=== PATIENT | male | born 1945 | race Caucasian/White ===

== ENCOUNTER → 2021-09-28 | Outpatient (CLI) | payer OTHER ==
[2021-09-28 14:37] LABS: Stool Occult Bld Immuno 1 Negative (NEGATIVE)
== END | disposition home or self-care (01) ==
LOC: LAB SHORT 07:30
PROVIDERS: Internal Medicine Hematology & Oncology
DX: D45 Polycythemia vera (principal)
CPT/HCPCS: G0328

== ENCOUNTER 2023-11-22 11:21 | Inpatient (IN) | payer OTHER ==
[~2023-11-22] VITALS: Ht 180.3 cm; Wt 82.5 kg
[2023-11-22] VITALS (36 sets, daily range): BP systolic 91–147; BP diastolic 51–115
[2023-11-22] MEDS ORDERED: propofoL 100 ML IV ONE (11:37)
[2023-11-22] MEDS ORDERED: FentaNYL Citrate 50 MCG/ML 2 ML Injection IV SCH (11:45)
[2023-11-22] MEDS ORDERED: propofoL 100 ML IV SCH ×2 (11:45→17:05)
[2023-11-22 11:52] LABS: BASOPHILS PERCENT AUTO 1 % (0-2); EOSINOPHILS ABSOLUTE AUTO 0.31 K/mm3 (0.00-0.68); EOSINOPHILS PERCENT AUTO 1 % (0-6); Hematocrit 53.7 % (37.0-53.0); Hemoglobin 15.7 g/dL (13.5-17.5); IMMATURE GRAN ABSOLUTE AUTO 0.28 K/mm3 (0.00-0.10); IMMATURE GRAN PERCENT AUTO 1 % (0-1); LYMPHOCYTES ABSOLUTE AUTO 4.97 K/mm3 (0.84-5.20); LYMPHOCYTES PERCENT AUTO 23 % (21-46); MONOCYTES ABSOLUTE AUTO 0.83 K/mm3 (0.16-1.47); MONOCYTES PERCENT AUTO 4 % (4-13); Mean Corpuscular HGB 19.4 pg (26.0-34.0); Mean Corpuscular HGB Conc 29.2 g/dL (31.5-36.5); Mean Corpuscular Volume 66 fL (80-100); Mean Platelet Volume 9.2 fL (9.1-12.4); NEUTROPHILS ABSOLUTE AUTO 15.54 K/mm3 (1.96-9.15); NEUTROPHILS PERCENT AUTO 70 % (41-73); Platelet Count 713 K/mm3 (150-400); RDW Coefficient Variation 21.9 % (11.7-14.2); RDW Standard Deviation 46.2 fL (35.1-46.3); White Blood Cell Count 22.13 K/mm3 (4.00-11.30)
[2023-11-22 12:05] LABS: Bicarbonate Venous 17.1 mmol/L (24.0-30.0); PCO2 Venous 30.9 mmHg (38-42); pH Blood Venous 7.31 (7.34-7.37)
[2023-11-22 12:07] LABS: International Normalized Ratio 1.15; Prothrombin Time Results 12.2 Sec (9.7-11.5)
[2023-11-22 12:45] LABS: Alanine Aminotransfer (ALT/SGP 37 U/L (12-78); Albumin, Blood 3.5 g/dL (3.4-5.0); Alk Phos 83 U/L (50-136); Anion Gap 20 mmol/L (3-11); Aspartate Aminotrans (AST/SGOT 49 U/L (12-37); Bilirubin, Total 1.6 mg/dL (0.1-1.0); Blood Urea Nitrogen 17 mg/dL (8-24); Bun/Creatinine Ratio 14.2 (12.0-20.0); CO2, Blood 14 mmol/L (21-32); Calcium, Blood 8.8 mg/dL (8.5-10.1); Chloride, Blood 109 mmol/L (98-108); Ethanol (Alcohol), Blood, Med <3 mg/dL; Free Thyroxine 1.01 ng/dL (0.70-1.60); Globulin, Blood 3.4 g/dL (2.2-4.0); Glomerular Filtration Rate 61 (60-); Glucose, Blood 178 mg/dL (70-99); Potassium, Blood 4.2 mmol/L (3.5-5.5); Sodium, Blood 139 mmol/L (136-145); Total Protein, Blood 6.9 g/dL (6.4-8.2)
[2023-11-22] MEDS ORDERED: NS 1,000 ML IV ONE (13:08)
[2023-11-22] MEDS ORDERED: Mag Sulfate 1 GM/D5% 100ML 100 ML IV ONE (13:10)
[2023-11-22 13:12] LABS: Source, Urine Clean Catch
[2023-11-22] MEDS ORDERED: fentaNYL citrate 1,000 MCG in NS 80 ML IV SCH (13:15)
[2023-11-22 13:16] LABS: Appearance, Urine Hazy (Clear); Bilirubin, Urine Neg (Neg); Blood, Urine 5+ (Neg); Color, Urine Yellow (P-Yellow); Glucose Qualitative, Urine Neg (Neg); Ketones, Urine Neg (Neg); Leukocyte Esterase, Urine Neg (Neg); Nitrite, Urine Neg (Neg); Protein, Urine 2+ (Neg); Urobilinogen, Urine NORM (Normal)
[2023-11-22 13:27] LABS: Bacteria Rare /hpf; Mucus Light (0-Heavy); Red Blood Cells, Urine 50-100 /hpf (0-2); Squamous Epithelial Cells Rare /hpf (Few); White Blood Cells, Urine 0-2 /hpf (0-5)
[2023-11-22 13:34] LABS: U Amphetamine Screen Not Detected; U Barbituate Screen Not Detected; U Benzodiazapine Screen Not Detected; U Buprenorphine Screen Not Detected; U Cannabinoids Screen Not Detected; U Cocaine Screen Not Detected; U Methadone Screen Not Detected; U Methamphetamine Screen Not Detected; U Opiates Screen Not Detected; U Oxycodone Screen Not Detected; U Phencyclidine Screen Not Detected
[2023-11-22] MEDS ORDERED: Cefepime HCl 2,000 MG in NS 100 ML IV ONE (13:55)
[2023-11-22] MEDS ORDERED: Lactated Ringer's 1,000 ML IV SCH (14:20)
--- NOTE | 2023-11-22 14:53 | NUR ---
ARRIVAL TO ICU PT BROUGHT TO ICU 4 AT THIS TIME. PT RECEIVING PROPOFOL 35MCG/KG/MIN, FENTANYL 25MCG/HR AND AMIODARONE 1MG/MIN. RASS -3. COUGH/GAG INTACT. HE IS ON THE VENT WITH SETTINGS AC/VC 12/450/7/40%. ETT PLACEMENT VERIFIED WITH TRESA OBANDO. OGT TO LIS WITH RED APPEARING OUTPUT. SINUS NNEKA ON MONITOR WITH RATE IN 40S-50S. MAP >65. AMIODARONE D/C PER DR HENDERSON. [place] PATENT AND DRAINING TO GRAVITY. URINE IS RED WITH CLOTS IN COLLECTION BAG BUT APPEARS YURY NOW IN TUBING. RECTAL TEMP PROBE PLACED, CORE TEMP 99.1. PT'S SON ED ARRIVED AT BEDSIDE AND PROVIDED UPDATE FROM NURSING STAFF AND DR HENDERSON. ED TOOK PT'S CAR KEYS. NO WALLET OR PHONE IN BELONGINGS. DR BLAIR AT BEDSIDE. PLAN FOR ECHO TOMORROW.
[2023-11-22] MEDS ORDERED: Ampicillin Sod/Sulbactam Sod 3 GM in NS 100 ML IV SCH (16:00)
[2023-11-22] MEDS ORDERED: Doxycycline Hyclate 100 MG in Dextrose 5% 250 ML IV SCH (16:00)
[2023-11-22 17:20] LABS: Base Excess Venous -6.4 mmol/L; Bicarbonate Venous 19.5 mmol/L (24.0-30.0); PCO2 Venous 37.5 mmHg (38-42); pH Blood Venous 7.33 (7.34-7.37)
[2023-11-22] MEDS ORDERED: Acetaminophen 160MG / 5ML 10.15 UDC PT PRN (17:45)
--- NOTE | 2023-11-22 17:47 | NUR ---
SHIFT SUMMARY PT RECEIVING PROPOFOL 35MCG/KG/MIN AND FENTANYL 25MCG/HR. WITH MEDICATIONS TITRATED DOWN, PT GRIMACING AND PULLING AGAINST RESTRAINTS. CURRENT RASS -3. HE REMAINS INTUBATED WITH VENT SETTINGS AC/VC+ 12/450/5/30%. OGT TO LIS WITH RED FLUID OUTPUT. ABDOMEN SOFT, NONTENDER. AUSTIN PATENT AND DRAINING TO YURY URINE TO GRAVITY. TMAX 99.8. ICE PACKS IN PLACE.
[2023-11-22 17:53] LABS: Albumin, Blood 3.7 g/dL (3.4-5.0); Albumin/Globulin Ratio 1.1 (0.8-1.8); Bilirubin, Total 1.9 mg/dL (0.1-1.0); Bun/Creatinine Ratio 14.9 (12.0-20.0); Calcium, Blood 9.1 mg/dL (8.5-10.1); Creatinine, Blood 1.21 mg/dL (0.60-1.20); Globulin, Blood 3.5 g/dL (2.2-4.0); Phosphorus, Blood 3.3 mg/dL (2.5-4.9); Potassium, Blood 4.5 mmol/L (3.5-5.5); Total Protein, Blood 7.2 g/dL (6.4-8.2)
[2023-11-22] MEDS ORDERED: NS 250 ML IV PRN (20:55)
[2023-11-22] MEDS ORDERED: Cetylpyridinium Chloride 1 EA MISC MT SCH (20:55)
[2023-11-22] MEDS ORDERED: Etomidate 2MG / ML 10ML Vial XX ONE (21:57)
[2023-11-22] MEDS ORDERED: Rocuronium Bromide 10 MG/ML 5ML Injection IV ONE (21:57)
--- NOTE | 2023-11-22 22:37 | NUR ---
ASSUMED CARE CARE WAS ASSUMED OF PT AT APPROX. 1900. PT INTUBATED AND SEDATED. PROPOFOL AND FENTANYL GTT INFUSING, SEE FLOWSHEET. RASS -3, CPOT 0-2. PT GRIMACES WITH PHYSICAL STIMULI. PT NOT FOLLOWING COMMANDS AT THIS TIME. PT IN BILATERAL SOFT WRIST RESTRAINTS FOR SAFETY. PT WILL OCCASIONALLY REACH UP WITH BUE WITH PHYSICAL STIMULI. VENT SETTINGS AC/VC+ 12/450/5/30%. PT HAVING MODERATE AMOUNT OF THICK/MAYER SECRETIONS. O2 SATS > 90%. CARDIAC MONITORING REFLECTS SINUS NNEKA, HR 40s-50s. SBP 100s-110s. PIV x4. LR INFUSING @ 75 mL/HR. CORE TEMPERATURE MONITORING IN PLACE, ICE PACKS AND FAN IN PLACE FOR PT'S ELEVATED TEMPERATURE. [place] PATENT AND DRAINING TO GRAVITY. OG TO LIS, CLEAR/RED DRAINAGE NOTED.
[2023-11-23] VITALS (50 sets, daily range): BP systolic 93–146; BP diastolic 44–103
[2023-11-23] MEDS ORDERED: Hydrogen Peroxide 1.5 % Solution MT SCH
[2023-11-23 02:06] LABS: Source, Urine Foley catheter
[2023-11-23 02:12] LABS: Appearance, Urine Clear (Clear); Bilirubin, Urine Neg (Neg); Blood, Urine 2+ (Neg); Color, Urine Yellow (P-Yellow); Glucose Qualitative, Urine Neg (Neg); Ketones, Urine Neg (Neg); Leukocyte Esterase, Urine 2+ (Neg); Nitrite, Urine Neg (Neg); Protein, Urine 2+ (Neg); Specific Gravity, Urine 1.025 (1.003-1.022); Urobilinogen, Urine NORM (Normal)
[2023-11-23 02:25] LABS: Amorphous Light (0-Heavy); Bacteria Mod /hpf; Squamous Epithelial Cells Few /hpf (Few)
[2023-11-23 03:27] LABS: Base Excess Venous -3.6 mmol/L; Bicarbonate Venous 22.2 mmol/L (24.0-30.0); PCO2 Venous 32.7 mmHg (38-42)
[2023-11-23 03:28] LABS: pH Blood Venous 7.42 (7.34-7.37)
[2023-11-23 03:30] LABS: Hematocrit 49.6 % (37.0-53.0); Hemoglobin 14.7 g/dL (13.5-17.5); Mean Corpuscular HGB 19.5 pg (26.0-34.0); Mean Corpuscular HGB Conc 29.6 g/dL (31.5-36.5); Mean Corpuscular Volume 66 fL (80-100); Mean Platelet Volume 9.2 fL (9.1-12.4); Platelet Count 511 K/mm3 (150-400); RDW Coefficient Variation 21.6 % (11.7-14.2); RDW Standard Deviation 45.3 fL (35.1-46.3); Red Blood Cell Count 7.52 M/mm3 (4.30-5.90); White Blood Cell Count 23.04 K/mm3 (4.00-11.30)
[2023-11-23 03:57] LABS: Albumin, Blood 3.3 g/dL (3.4-5.0); Anion Gap 14 mmol/L (3-11); Blood Urea Nitrogen 19 mg/dL (8-24); Bun/Creatinine Ratio 18.3 (12.0-20.0); CO2, Blood 20 mmol/L (21-32); Calcium, Blood 8.7 mg/dL (8.5-10.1); Chloride, Blood 109 mmol/L (98-108); Creatinine, Blood 1.04 mg/dL (0.60-1.20); Glomerular Filtration Rate 73 (60-); Glucose, Blood 144 mg/dL (70-99); Magnesium, Blood 2.2 mg/dL (1.6-2.4); Potassium, Blood 4.8 mmol/L (3.5-5.5); Sodium, Blood 138 mmol/L (136-145)
--- NOTE | 2023-11-23 05:17 | NUR ---
SHIFT SUMMARY NO ACUTE CHANGES THIS SHIFT. PT REMAINS INTUBATED AND SEDATED. PROPOFOL AND FENTANYL GTT INFUSING, SEE FLOWSHEET. RASS -3, PT WILL OCCASIONALLY OPEN EYES BUT NOT MAKE EYE CONTACT. PT NOT FOLLOWING COMMANDS AT THIS TIME. CPOT O. PT REMAINS IN BILATERAL SOFT WRIST RESTRAINTS, PT WILL PULL AGAINST RESTRAINTS WHEN AWAKE. VENT SETTINGS UNCHANGED THIS SHIFT, AC/VC+ 12/450/5/30%, O2 SATS > 90%. CARDIAC MONITORING REFLECTS SINUS NNEKA WITH OCCASIONAL PVCs, HR 40s-50s. PT HAD 1 16-BEAT RUN OF VTACH THIS SHIFT. EKG PERFORMED THIS SHIFT. SBP 90s-110s. OG TO LIS. [place] PATENT AND DRAINING TO GRAVITY. TMAX THIS SHIFT 100.6 DEGREES F, CORE TEMP IMPROVED THIS SHIFT. AT THIS TIME 99.5 DEGREES F, ICE PACKS REMOVED. PIV x4. LR REMAINS INFUSING @ 75 mL/HR.
[2023-11-23] MEDS ORDERED: LORazepam 2 MG/ML 1ML Injection ONE (09:50)
[2023-11-23] MEDS ORDERED: LORazepam 2 MG/ML 1ML Injection IV ONE (10:05)
--- NOTE | 2023-11-23 10:24 | NUR ---
ASSUMED CARE NOTE PT IN BED, INTUBATED AND SEDATED. VENT SETTINGS AC/VC 12/450/5/30%. CALM, RESPONSIVE TO VERBAL STIMULI, EYES CLOSED. PROPOFOL RUNNING AT 25MCG/KG/HR, FENTANYL RUNNING AT 25MCG/KG/HR. SCDS IN PLACE. BUE SOFT WRIST RESTRAINTS IN PLACE, GOOD DISTAL CIRCULATION.
--- NOTE | 2023-11-23 10:32 | NUR ---
EXTUBATION NOTE PT EXTUBATED SUCCESSFULLY AT 0930 WITH RT TRESA. PT HANDLED EXTUBATION WELL, WAS ABLE TO COUGH AND CLEAR AIRWAY INDEPENDENTLY. WAS ABLE TO SIT UP AND SPEAK. SPO2 >90% ON ROOM AIR. ETCO2 BETWEEN 8-15. GOT PT TO DANGLE ON SIDE OF BED. PT BEGAN TO TRY TO GET OOB. PULLED ON LINES AND ATTEMPTED TO TAKE GOWN OFF. PT WAS NOT REDIRECTABLE, ATTEMPTED TO ORIENT PT MULTIPLE TIMES BUT UNSUCCESSFUL. FOR SAFETY- NATALI VEST WAS PLACED. PT IS MAINTAINING AIRWAY AND RESTING IN BED WITH EYES CLOSED, CHEST RISE AND FALL NOTED, BREATHS EVEN AND UNLABORED.
[2023-11-23] MEDS ORDERED: ELIQUIS5 M2 PO (13:27)
[2023-11-23] MEDS ORDERED: METO25ER PO (13:29)
--- NOTE | 2023-11-23 13:30 | NUR ---
SWALLOW EVAL/UPDATE: PT SITTING UP BED, AWAKE AND ORIENTED TO SELF. ANSWERING YES/NO QUESTIONS. HAD PT ATTEMPT TO EAT ICE CHIPS, AFTER THE THIRD ICE CHIP HE BEGAN TO COUGH. TRIAL WAS UNSUCCESSFUL AT THIS TIME.
--- NOTE | 2023-11-23 14:29 | NUR ---
EXTUBATION NOTE PT EXTUBATED SUCCESSFULLY AT 0930 WITH RT TRESA. PT WAS ABLE TO COUGH AND CLEAR AIRWAY INDEPENDENTLY. WAS ABLE TO SIT UP AND SPEAK. SPO2 >90% ON ROOM AIR. GOT PT TO DANGLE ON SIDE OF BED. PT BEGAN TO TRY TO GET OOB. PULLED ON LINES AND ATTEMPTED TO TAKE GOWN OFF. PT WAS NOT REDIRECTABLE, ATTEMPTED TO ORIENT PT MULTIPLE TIMES BUT UNSUCCESSFUL. ATTEMPTED TO HAVE FAMILY AT BEDSIDE AND DECREASE STIMULI BY TURNING LIGHTS DOWN. THESE INTERVENTIONS WERE UNSUCCESSFUL. FOR SAFETY- NATALI VEST WAS PLACED. PT IS MAINTAINING AIRWAY AND RESTING IN BED WITH EYES CLOSED, CHEST RISE AND FALL NOTED, BREATHS EVEN AND UNLABORED.
--- NOTE | 2023-11-23 16:48 | NUR ---
SHIFT SUMMARY PT UP IN RECLINER W/ NATALI VEST IN PLACE. VSS. PT WAS EXTUBATED THIS AM. SATS ARE IN THE 90'S ON RA. MAINTANENCE FLUIDS INFUSING. MOOD AND BEHAVIOR HAS IMPROVED SINCE EXTUBATION. PT IS ABLE TO ANSWER YES/ NO QUESTIONS BUT IS NOT ABLE TO ANSWER ORIENTATION QUESTIONS. SON ED IS AT BEDSIDE, HE HAS BEEN ATTEMPTING REORIENTATION WITH FAMILY PHOTOS. PT HAS A AUST[place] THAT IS PATENT. SWALLOW EVAL WAS UNSUCCESSFUL AFTER 3 ATTEMPTS WITH ICE CHIPS. SEE NURSE NOTES.
[2023-11-23] MEDS ORDERED: Enoxaparin 40 MG/0.4 ML SYR SC ONE (18:00)
--- NOTE | 2023-11-23 22:23 | NUR ---
REMOVED URINARY CATHTER, PATIENT CONTINUOUS PULLING AT IT AND PULLED COTA OFF LEG. ONCE REMOVED PATIENT SLEEPING.
[2023-11-24] VITALS (20 sets, daily range): BP systolic 87–144; BP diastolic 42–82
[2023-11-24] MEDS ORDERED: FentaNYL Citrate 50 MCG/ML 2 ML Injection IV PRN (02:55)
[2023-11-24] MEDS ORDERED: LORazepam 2 MG/ML 1ML Injection IV PRN (02:55)
[2023-11-24 03:14] LABS: BASOPHILS ABSOLUTE AUTO 0.09 K/mm3 (0.00-0.23); BASOPHILS PERCENT AUTO 1 % (0-2); EOSINOPHILS ABSOLUTE AUTO 0.06 K/mm3 (0.00-0.68); EOSINOPHILS PERCENT AUTO 0 % (0-6); Hematocrit 46.7 % (37.0-53.0); Hemoglobin 13.6 g/dL (13.5-17.5); IMMATURE GRAN PERCENT AUTO 1 % (0-1); LYMPHOCYTES ABSOLUTE AUTO 1.85 K/mm3 (0.84-5.20); LYMPHOCYTES PERCENT AUTO 10 % (21-46); MONOCYTES ABSOLUTE AUTO 1.08 K/mm3 (0.16-1.47); MONOCYTES PERCENT AUTO 6 % (4-13); Mean Corpuscular HGB 19.2 pg (26.0-34.0); Mean Corpuscular HGB Conc 29.1 g/dL (31.5-36.5); Mean Corpuscular Volume 66 fL (80-100); Mean Platelet Volume 8.9 fL (9.1-12.4); NEUTROPHILS ABSOLUTE AUTO 16.36 K/mm3 (1.96-9.15); NEUTROPHILS PERCENT AUTO 84 % (41-73); Platelet Count 469 K/mm3 (150-400); RDW Coefficient Variation 21.2 % (11.7-14.2); White Blood Cell Count 19.54 K/mm3 (4.00-11.30)
[2023-11-24 03:32] LABS: Albumin, Blood 3.1 g/dL (3.4-5.0); Bun/Creatinine Ratio 13.6 (12.0-20.0); Calcium, Blood 8.6 mg/dL (8.5-10.1); Creatinine, Blood 1.03 mg/dL (0.60-1.20); Magnesium, Blood 1.9 mg/dL (1.6-2.4); Phosphorus, Blood 1.8 mg/dL (2.5-4.9); Potassium, Blood 4.2 mmol/L (3.5-5.5); Total Protein, Blood 6.1 g/dL (6.4-8.2)
[2023-11-24] MEDS ORDERED: Sodium Phosphate 30 MM in Dextrose 5% 500 ML IV ONE (05:00)
--- NOTE | 2023-11-24 05:54 | NUR ---
SHIFT SUMMARY PATIENT VERY RESTLESS AND MADE MULTIPLY ATTEMPTS TO GET OUT OF BED. ATIVAN WAS ORDERED. PATIENT COMPLAINED OF CHEST AND UPPER ABDOMEN PAIN WHEN MOVING. EKG DONE IN CHART AND FENTANYL ORDERED FOR PAIN. ALERT X1 BUT VERY CONFUSED ON HOW HE GOT TO HOSPITAL. PATIENT CONTINUED TO PULL ON URINARY CATHETER, NURSE TOOK CATHETER OUT AND PATIENT USED URINAL IN BED AND STANDING AT BEDSIDE WITH ASSIST FROM NURSE. HX OF AFIB HR IN THE 60-70'S, SBP'S 110-120'S. CALL LIGHT WITHIN REACH PATIENT NEEDS REDIRECTING AND REMINDERS TO STAY IN BED. PATIENT HAS NATALI VEST ON UPPER BODY. .
--- NOTE | 2023-11-24 07:30 | NUR ---
ASSUMED CARE TOOK REPORT FROM ALEJANDRA LORA RN. PT LAYING IN BED RESTING W/ EYES CLOSED. PT HAS NATALI VEST ON, TIED WITH QUICK RELEASE KNOTS BILATERALLY. HE IS RESTLESS AND OCASSIONALLY PULLS AT HIS LINES AND TUBES DURING BSSR. SYSTOLIC BP 120S MAP >65. HR IN 80-90S. HE HAS LR RUNNING AT 75ML/HR AND SODIUM PHOSPATE AT 102ML/HR. BED IS IN LOWEST POSITION AND CALL LIGHT IN REACH.
[2023-11-24] MEDS ORDERED: Verapamil HCL 2.5 MG/ML 2ML Injection ONE (09:32)
[2023-11-24] MEDS ORDERED: NS 250 ML IV ONE (09:33)
[2023-11-24] MEDS ORDERED: Heparin Sodium 1000 Units/ML 10ML MDV ONE (09:33)
[2023-11-24] MEDS ORDERED: NS 1,000 ML IV ONE ×2 (09:33→09:36)
[2023-11-24] MEDS ORDERED: FentaNYL Citrate 50 MCG/ML 2 ML Injection ONE (09:36)
[2023-11-24] MEDS ORDERED: Midazolam HCl 1MG / ML 2ML Vial ONE (09:36)
--- NOTE | 2023-11-24 09:58 | NUR ---
PT TO PSYCHIATRY ADULT PHYSICIAN With laborer high density press staff
[2023-11-24] MEDS ORDERED: Atropine Sulfate 0.1 MG/ML 10ML SYR ONE (10:01)
--- NOTE | 2023-11-24 10:50 | NUR ---
RETURN FROM [facility] PT ALERT AND ORIENTED TO SELF, SITUATION, AND FAMILY. TR BAND IN PLACE W/ 9CC ON ARRIVAL. IT IS INTACT ON INSPECTION. PT IS RESTLESS AND NEEDED TO BE REMINDED TO HOLD WRIST STILL.
[2023-11-24] MEDS ORDERED: Acetaminophen 325 MG TABLET PO PRN (16:40)
--- NOTE | 2023-11-24 17:59 | NUR ---
SHIFT SUMMARY. PT HAS BEEN ALERT AND ORIENTED TO SELF AND FAMILY. HE HAS HAD INTERMITTENT DISORIENTATION AND NEEDS TO BE REMINDED OF SITUATION AND LIMITATIONS. HE WILL GET OUT OF BED W/O USING CALL LIGHT. HIS SON HAS BEEN AT THE BESIDE MOST OF THE DAY. HIS SPO2 IS >96 ON RA. SYSTOLIC BP RANGES FROM 110-130S AND MAP >65. PT HAS PCI TODAY. HIS TR BAND WAS REMOVED AT 1655 AND TEGADERM IS IN PLACE AND C/D/I/ HE HAS A RFA IV INFUSING LR AT 75ML/HR. PT IS ABLE TO AMBULATE TO [facility] OR USE URINAL WITH ASSISTANCE. HIS URINE IS DARK YELLOW AND HE HAS URGENCY WHEN HE GOES. HE PASSED SWALLOW TEST THIS AM AND HAS HAD A GOOD APPETITE, EATING MOST OF HIS MEALS. BED IN LOWEST POSITION. BED ALARM ON.
--- NOTE | 2023-11-24 20:48 | NUR ---
ASSUMED CARE CARE WAS ASSUMED AT APPROX 1900. PT A/O X2, IMPULSIVE AND NEEDING FREQUENT REORIENTATION OF SITUATION. PT ATTEMPTS TO GET OUT OF BED INDEPENDENTLY DESPITE EDUCATION PROVIDED ON FALL RISK AND NEED TO USE CALL LIGHT BEFORE GETTING UP. BED ALARM ON FOR SAFETY. PT ON RA, O2 SATS > 90%. CARDIAC MONITORING REFLECTS AFIB, HR 80s-90s. SBP 120s. PIV TO LFA PATENT, LR INFUSING @ 75 mL/HR. PT ABLE TO REPOSITION HIPS INDEPENDENTLY IN THE BED.
[2023-11-24] MEDS ORDERED: Metoprolol Succinate 50 MG TABCR PO SCH (21:00)
[2023-11-25 03:30] LABS: BASOPHILS PERCENT AUTO 1 % (0-2); EOSINOPHILS ABSOLUTE AUTO 0.11 K/mm3 (0.00-0.68); EOSINOPHILS PERCENT AUTO 1 % (0-6); Hematocrit 44.5 % (37.0-53.0); Hemoglobin 13.2 g/dL (13.5-17.5); IMMATURE GRAN ABSOLUTE AUTO 0.11 K/mm3 (0.00-0.10); IMMATURE GRAN PERCENT AUTO 1 % (0-1); LYMPHOCYTES ABSOLUTE AUTO 1.74 K/mm3 (0.84-5.20); LYMPHOCYTES PERCENT AUTO 10 % (21-46); MONOCYTES ABSOLUTE AUTO 0.97 K/mm3 (0.16-1.47); MONOCYTES PERCENT AUTO 6 % (4-13); Mean Corpuscular HGB 19.4 pg (26.0-34.0); Mean Corpuscular HGB Conc 29.7 g/dL (31.5-36.5); Mean Corpuscular Volume 65 fL (80-100); Mean Platelet Volume 9.3 fL (9.1-12.4); NEUTROPHILS ABSOLUTE AUTO 14.15 K/mm3 (1.96-9.15); NEUTROPHILS PERCENT AUTO 83 % (41-73); Platelet Count 474 K/mm3 (150-400); RDW Coefficient Variation 21.2 % (11.7-14.2); Red Blood Cell Count 6.82 M/mm3 (4.30-5.90); White Blood Cell Count 17.18 K/mm3 (4.00-11.30)
[2023-11-25 03:53] LABS: Magnesium, Blood 1.7 mg/dL (1.6-2.4)
[2023-11-25 03:54] LABS: Albumin, Blood 2.6 g/dL (3.4-5.0); Albumin/Globulin Ratio 0.9 (0.8-1.8); Bilirubin, Total 2.6 mg/dL (0.1-1.0); Bun/Creatinine Ratio 10.8 (12.0-20.0); Calcium, Blood 8.5 mg/dL (8.5-10.1); Creatinine, Blood 1.02 mg/dL (0.60-1.20); Globulin, Blood 2.8 g/dL (2.2-4.0); Phosphorus, Blood 2.6 mg/dL (2.5-4.9); Potassium, Blood 4.1 mmol/L (3.5-5.5); Total Protein, Blood 5.4 g/dL (6.4-8.2)
[2023-11-25 04:00] VITALS: BP 103/68
[2023-11-25] MEDS ORDERED: Magnesium Sulf 2 GM/Water 50ML 50 ML IV ONE (06:05)
--- NOTE | 2023-11-25 06:05 | NUR ---
SHIFT SUMMARY PT'S MEMORY IMPROVING THIS SHIFT, ABLE TO RECALL SOME EVENTS AND WHAT YEAR IT IS. A/O X2-3. PT REMAINS IMPULSIVE, CONTINUES TO ATTEMPT TO GET OUT OF BED WITHOUT ASSISTANCE. BED ALARM REMAINS ON FOR SAFETY. 1 ASSIST TO TOILET. PT ON 2 L N/C FOR SLEEP D/T DESATURATING. CARDIAC MONITORING REFLECTS AFIB, HR 80s. SBP 100s-120s. PIV TO LFA PATENT. PT TOLERATES PO FLUIDS. NOTIFIED HOSPITALIST OF [facility], SEE EMAR FOR NEW ORDERS.
[2023-11-25 08:00] VITALS: BP 129/75
[2023-11-25] MEDS ORDERED: Apixaban 5 MG Tab PO SCH (09:00)
[2023-11-25 12:30] VITALS: BP 120/96
[2023-11-25 13:21] LABS: Percent Saturation 5.4 % (20.0-50.0)
[2023-11-25] MEDS ORDERED: Sod Ferric Gluc Complx/Sucrose 125 MG in NS 100 ML IV SCH (13:50)
--- NOTE | 2023-11-25 18:42 | NUR ---
Summary. No acute events this shift. Pt still struggling with short term memory recall. Otherwise pleasant and cooperative with care, independent in room with call light and assistance for cords/lines. [employer] rep in to fit life vest this evening, son present for education. See chart for further details.
[2023-11-25 20:00] VITALS: BP 137/67
[2023-11-25] MEDS ORDERED: Melatonin 5 MG Tablet PO PRN (20:00)
[2023-11-25] MEDS ORDERED: Amiodarone HCl 200 MG Tab PO SCH (21:00)
--- NOTE | 2023-11-25 21:59 | NUR ---
ASSUMED CARE PT A/O X4, ABLE TO ANSWER QUESTIONS APPROPRIATELY BUT DOES TAKE TIME TO THINK ABOUT HIS ANSWERS. PT HAVING SOME DIFFICULTY WHT SHORT TERM MEMORY. PT ATTEMPTS TO GET UP WITHOUT ASSISTANCE, BED ALARM ON FOR SAFETY. ZOLL SAFETY VEST ON. PT ON RA, O2 SATS > 90%. CARDIAC MONITORING REFLECTS NSR WITH PVCs, HR 70s. SBP 130s. PT TO RFA IN PLACE, NS TKO INFUSING. RIGHT RADIAL ACCESS SITE DRESSING C/D/I.
[2023-11-26] VITALS: BP 132/72
[2023-11-26 03:28] LABS: Hematocrit 45.4 % (37.0-53.0); Hemoglobin 13.3 g/dL (13.5-17.5); Mean Corpuscular HGB 19.3 pg (26.0-34.0); Mean Corpuscular HGB Conc 29.3 g/dL (31.5-36.5); Mean Corpuscular Volume 66 fL (80-100); Mean Platelet Volume 9.2 fL (9.1-12.4); Platelet Count 460 K/mm3 (150-400); RDW Coefficient Variation 21.2 % (11.7-14.2); RDW Standard Deviation 43.9 fL (35.1-46.3)
[2023-11-26 03:55] LABS: Albumin, Blood 2.8 g/dL (3.4-5.0); Albumin/Globulin Ratio 0.9 (0.8-1.8); Bilirubin, Total 1.8 mg/dL (0.1-1.0); Bun/Creatinine Ratio 10.9 (12.0-20.0); Calcium, Blood 8.7 mg/dL (8.5-10.1); Creatinine, Blood 1.01 mg/dL (0.60-1.20); Globulin, Blood 3.2 g/dL (2.2-4.0); Potassium, Blood 3.9 mmol/L (3.5-5.5)
[2023-11-26 04:03] VITALS: BP 152/136
--- NOTE | 2023-11-26 05:28 | NUR ---
SHIFT SUMMARY NO ACUTE CHANGES THIS SHIFT. PT'S MEMORY APPEARS TO IMPROVE, A/O x3-4, BUT CONTINUES TO GET OUT OF BED WITHOUT PRESSING CALL LIGHT. BED ALARM REMAINS ON. PT ON RA, O2 SATS > 90% WHEN SPOT CHECKED. ZOLL LIFE VEST REMAINS IN PLACE. CARDIAC MONITORING REFLECTS NSR WITH PVCs, HR 60s. SBP 140s. PIV TO CAREN SL. PT 1 ASSIST TO TOILET, TOLERATING PO INTAKE.
[2023-11-26 08:00] VITALS: BP 119/83
[2023-11-26] MEDS ORDERED: Amoxicillin/Clavulanate K 875 MG Tab PO SCH (09:00)
[2023-11-26] MEDS ORDERED: Doxycycline Hyclate 100 MG TAB PO SCH (09:00)
[2023-11-26] MEDS ORDERED: Metoprolol Succinate 50 MG TABCR PO ONE (10:10)
[2023-11-26] MEDS ORDERED: METO50ER PO (11:28)
[2023-11-26] MEDS ORDERED: Amiodarone HCl200 MG PO (11:30)
[2023-11-26] MEDS ORDERED: AMIODARONE HCL400 M2 PO (11:31)
[2023-11-26] MEDS ORDERED: MELATONIN5 M1 PO (11:32)
[2023-11-26] MEDS ORDERED: AMOCLA875 PO (11:32)
[2023-11-26] MEDS ORDERED: VISBIOME 112.51 EACH PO (11:33)
[2023-11-26] MEDS ORDERED: Acerola C500 MG PO (11:34)
[2023-11-26] MEDS ORDERED: FERSU300 PO (11:35)
[2023-11-26 11:45] VITALS: BP 139/91
--- NOTE | 2023-11-26 12:09 | NUR ---
DISCHARGE PT PROVIDED DISCHARGE EDUCATION AND INSTRUCTIONS. PT'S SON ED AT BEDSIDE DURING THIS TIME. PRESCRIPTIONS FAXED TO [facility] PER REQUEST AND RECEIVED CONFIRMATION. PT HAS LIFE VEST ON. DENIED ASSISTANCE WITH DRESSING. ALL BELONGINGS GATHERED BY SON ED. PT PROVIDED WHEELCHAIR RIDE TO CAR BY NOE MARIE. PT LEFT DEPARTMENT AT 1209.
[2023-11-26] MEDS ORDERED: Metoprolol Succinate 50 MG TABCR PO SCH (21:00)
[2023-11-27 14:40] LABS: ANGIOTENSIN CONVERTING ENZYME 18 U/L (16-85)
[2023-11-29] MEDS ORDERED: Amiodarone HCl 200 MG Tab PO SCH (09:00)
== END 2023-11-26 12:10 | disposition home or self-care (01) | DRG 286 ==
LOC: ER 11:21 → ICUE 14:39
PROVIDERS: Emergency Medicine; Internal Medicine; Student in an Organized Health Care Education/Training Program; ADMIT Internal Medicine
PROC: 5A1935Z Respiratory Ventilation, Less than 24 Consecutive Hours (ICD-10-PCS; 2023-11-22)
PROC: 0BH17EZ Insertion of Endotracheal Airway into Trachea, Via Natural or Artificial Opening (ICD-10-PCS; 2023-11-22)
PROC: 0DH67UZ Insertion of Feeding Device into Stomach, Via Natural or Artificial Opening (ICD-10-PCS; 2023-11-22)
PROC: 4A023N7 Measurement of Cardiac Sampling and Pressure, Left Heart, Percutaneous Approach (ICD-10-PCS; principal; 2023-11-24)
PROC: B2111ZZ Fluoroscopy of Multiple Coronary Arteries using Low Osmolar Contrast (ICD-10-PCS; 2023-11-24)
DX: I49.01 Ventricular fibrillation (principal); G93.41 Metabolic encephalopathy; J69.0 Pneumonitis due to inhalation of food and vomit; J96.01 Acute respiratory failure with hypoxia; I50.32 Chronic diastolic (congestive) heart failure; E87.20 Acidosis, unspecified; I46.2 Cardiac arrest due to underlying cardiac condition; I48.0 Paroxysmal atrial fibrillation; E83.39 Other disorders of phosphorus metabolism; D50.9 Iron deficiency anemia, unspecified; D45 Polycythemia vera; D75.838 Other thrombocytosis; I47.20 Ventricular tachycardia, unspecified; I11.0 Hypertensive heart disease with heart failure; E78.5 Hyperlipidemia, unspecified; Z98.890 Other specified postprocedural states
CPT/HCPCS: 31500; 36415; 51702; 70450; 71045; 71260; 72125; 74177; 76937; 80053; 80069; 80320; 81001; 82140; 82164; 82728; 82803; 83540; 83550; 83605; 83735; 83880; 84100; 84439; 84443; 84484; 85025; 85027; 85610; 85651; 85730; 86140; 87070; 87205; 93005; 93010; 93306; 93458; 94002; 94003; 96366; 96375; 99152; 99291-25; A9270; C1769; C1887; C1894; J0282; J0295; J0461; J0692; J1644; J1650; J2060; J2250; J2704; J2916; J3010; J3475; J7030; J7050; J7060; J7120; L0160; Q9967